=== PATIENT | male | born 1965 | race Caucasian/White ===

== ENCOUNTER 2022-03-05 13:53 | Outpatient (RCR) | payer BC, OTHER, SELFPAY ==
--- NOTE | 2022-03-05 22:05 | P.CONTMS_ITS ---
History of Present Illness General Data Date of Service: 03/05/22 Reason for consult: tms eval Requesting provider: Nargis Abrams History of Present Illness The patient is safe 56-year-old male referred by Dr. Abrams for TMS evaluation. Patient was 1st treated for depression in 1989 7 he has a history of suicidality past history of psychotherapy from [facility] but not since 2014. 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 He is currently on a combination of Lamictal 200 b.i.d. Latuda 120 mg a day Lithobid 300 mg daily and sertraline 200 mg daily. Allergy noted to sertraline. Patient reports ongoing depressive symptoms. He has low energy negative thinking periods of irritability hopelessness helplessness has been diagnosed by Dr. Abrams with borderline personality disorder. Patient does have a history of ECT response in 2000 07 and 2020 some affect. There is a a question of alcohol abuse Dr. Abrams feels the patient is binge drinking heavily drinking the patient states he has been having 1 or 2 drinks a night does not see it as a major issue denies any history of alcohol or substance abuse. 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 There is history of irritability agitation associated with depression appears to be more mixed states Past Psychiatric History/Medication Trials: Records reviewed from Dr. Abrams. History of treatment resistant question bipolar depression and personality disorder history of multiple past antidepressant trials none in a number of years. Past trials of Effexor Wellbutrin in addition to above medication but not for many years [facility] Narrative: History of chronic kidney disease hypothyroidism diabetes Family History: Patient adopted Social History: Patient is with to step children this works at [employer] he has been 5 and half years things are not going well. His 1 sister who Patient normally works full-time as a teacher has not been able to work full- time and works as animal pathology teacher. Substance History: Question of overuse of alcohol patient denies alcohol or substance abuse Meds/Allergies Meds Narrative: Trulicity levothyroxine lithium 900 mg a day levothyroxine 175 mcg a day lamotrigine 200 b.i.d. Latuda 120 mg they sertraline 200 mg a day Mental Status Exam Mental Status Exam Patient Appearance: Well Grooomed Level of Consciousness: Awake Patient Behavior: Appropriate Mood Description: Constricted, Depressed and Anxious Affect Description: Appropriate, Constricted and Anxious Speech Pattern: Clear Memory Description: Intact Hallucinations: None Delusions: Not Present Thought Process: Intact Depressive Symptoms: Increased Anxiety, Hopelessness and Thoughts of /Suicide Judgement: Fair Assessment & Plan Assessment & Plan (1) Major depression, recurrent, chronic: Status: Acute Code(s): F33.9 - Major depressive disorder, recurrent, unspecified Plan Patient has a history of recurrent depression with mixed personality disorder symptoms question of hypomanic or mixed episodes. Patient did not elucidate a history of manic symptoms during this interview. The patient does have a history of response to ECT. The patient has not had multiple antidepressant trials or med changes and will an extended period of time and has also not been in any form of recent psychotherapy. TMS requirements would suggest the need for further medication trials and would certainly make sense for the patient to be in aggressive cognitive behavioral or DBT type therapy. Above reviewed with Dr. Abrams I spent minutes with the patient and/or on the patient floor today, greater than?50% of which was spent counseling/coordinating care. Patient educated on: diagnosis and TMS Informed Consent: understands
== END 2023-02-24 17:20 | disposition home or self-care (01) ==
LOC: HO.PTMS 13:53
PROVIDERS: Visit Provider Psychiatry & Neurology Psychiatry
DX: F32.A Depression, unspecified (principal)